=== PATIENT | female | born 1985 | race Two or more races ===

== ENCOUNTER 2025-03-31 22:41 | Day surgery (SDC) | payer MEDICAID, SELFPAY ==
[2025-03-31 23:09] VITALS: BP 127/84; PULSE 88; RESP 18; TEMP 36.8; O2SAT 98
--- NOTE | 2025-03-31 23:20 | XR_ITS ---
Examination: CT abdomen with intravenous contrast CT pelvis with intravenous contrast 2-D coronal reconstructions 2-D sagittal reconstructions Date and time of exam:April 01, 2025 0103 hours INDICATIONS: Onset right lower abdominal pain today. CTDI: vol (mGy) 7.50. DLP: (mGycm) 415. Technique: Multiple axial sections of the abdomen and pelvis have been obtained. 64 slice high-resolution scanner used. 3 mm axial sections have been obtained, post intravenous injection 60 cc Isovue 370. 2-D sagittal, coronal reconstructions obtained. Low dose protocols were performed. One or more of the following dose reduction techniques were used; automated exposure control, adjustment of the mA and/or KV according to patient size, use of iterative reconstruction technique. Findings: No focal liver or splenic lesions No gallstones No pancreatic mass No renal or ureteral calculi, no hydronephrosis Aorta normal size The appendix, axial images 161 through 146, sagittal images 105 through 94, retrocecal is fluid-filled and thickened measuring up to 7 mm There is possible very minimal periappendiceal inflammatory change. There is no pericecal inflammatory change There is no abscess Urinary bladder is intact IMPRESSION: The appendix is thickened measuring up to 7 mm, fluid-filled There is possible very minimal periappendiceal inflammatory change, there is no pericecal inflammatory change, the appearance should be clinically correlated
[2025-03-31 23:33] LABS: Collection Type, Urine Clean Catch
--- NOTE | 2025-03-31 23:46 | PD.EDABDPN ---
ED Abdominal Pain RME/HPI General Chief Complaint: Abdominal Pain Stated complaint: ABD PAIN Time seen by provider: 03/31/25 23:20 Arrival date/time: 03/31/25 22:41 39F with HLD and pre-DM presents to ED with 2 days of R-sided ab/flank pain and possible dysuria. There is also diarrhea and N/V. Limitations: no limitations Related Data Previous Rx's ?Medication ?Instructions ?Recorded docusate sodium 100 mg capsule 100 mg PO BID #20 caps 04/01/25 (Colace) hydrocodone 5 mg-acetaminophen 325 1 tab PO Q6H PRN pain (scale score 04/01/25 mg tablet 7-10) #10 tabs ibuprofen 600 mg tablet 600 mg PO Q8H PRN pain (scale 04/01/25 score 4-6) #15 tabs Allergies Allergy/AdvReac Type Severity Reaction Status Date / Time No Known Allergies Allergy Verified 03/31/25 22:42 Review of Systems Review of Systems Systems Reviewed: All systems reviewed, normal except as documented Constitutional Constitutional: Reports system reviewed and no additional complaints, except as documented, Denies fever(s) and Denies headache(s) ENT Ears, Nose, Mouth, and Throat: Denies disequilibrium and Denies headache(s) Cardiovascular Cardiovascular: Reports system reviewed and no additional complaints, except as documented, Denies chest pain and Denies dyspnea Respiratory Respiratory: Reports system reviewed and no additional complaints, except as documented, Denies cough and Denies dyspnea Gastrointestinal Gastrointestinal: Reports system reviewed and no additional complaints, except as documented, Reports as per HPI, Reports abdominal pain, Reports diarrhea, Reports nausea and Reports vomiting Genitourinary Genitourinary: Reports as per HPI and Reports dysuria Neurologic Neurologic: Reports system reviewed and no additional complaints, except as documented, Denies confusion, Denies disequilibrium and Denies headache(s) Psychiatric Psychiatric: Denies confusion Past Medical History Social History SMOKING STATUS: Never smoker ED Exam General Limitations: Present no limitations General appearance: Present alert and in no apparent distress Head Head exam: Present atraumatic Eye Eye exam: Present normal appearance, PERRL and EOMI ENT ENT exam: Present normal exam, normal oropharynx and mucous membranes moist Neck Neck exam: Present normal inspection, full ROM and trachea midline Chest Chest inspection: Present normal inspection and symmetric chest wall rise Respiratory Respiratory exam: Present normal lung sounds bilaterally Cardiovascular Cardiovascular exam: Present regular rate, normal rhythm and normal heart sounds Abdominal Exam Abdominal exam: Present soft and normal bowel sounds Extremities Exam Extremities exam: Present normal inspection and full ROM Back Exam Back exam: Present normal inspection and full ROM Neurological Exam Neurological exam: Present alert, oriented X3 and CN II-XII intact Psychiatric Psychiatric exam: Present normal affect and normal mood Skin Skin exam: Present warm, dry, intact and normal color Course Quality Measures none Orders Category Date Time Status Patient Condition Routine Admission 04/01/25 07:[address] in Surgical Day Care Routine Admission 04/01/25 07:09 Active COVID-19 Screening Questionnaire NOW Care 04/01/25 03:28 Completed COVID-19 Screening Questionnaire NOW Care 04/01/25 05:[address] Screening NOW Care 03/31/25 23:20 Completed Consent [Obtain Written Consent For:] .NOW Care 04/01/25 07:09 Completed DC Home When Criteria Met . Care 04/01/25 11:09 Completed Decision to Admit X1 Care 04/01/25 05:15 Completed Insert IV NOW Care 03/31/25 23:20 Completed Intake and Output QSHIFT Care 04/01/25 07:15 Ordered NPO NOW Care 04/01/25 03:05 Completed NPO NOW Care 04/01/25 07:09 Completed Notify provider NEEDED Care 04/01/25 07:09 Completed Consult to General Surgery Stat Cons 04/01/25 03:05 Ordered Diet NPO (NOW) Diet 04/01/25 03:05 Completed Diet NPO (NOW) Diet 04/01/25 07:09 Active Discharge Routine Discharge 04/01/25 12:[address] abdomen pelvis w con Stat Exams 03/31/25 23:20 Completed US gall bladder Stat Exams 04/01/25 00:00 Completed CBC Stat Lab 03/31/25 23:27 Completed CMP [Comprehensive Metabolic Panel] Stat Lab 03/31/25 23:27 Completed Drug Screen,Urine Stat Lab 03/31/25 23:26 Completed HCG Qualitative,Urine Stat Lab 03/31/25 23:26 Completed Lipase Stat Lab 03/31/25 23:27 Completed Urinalysis, C/S if Indicated Stat Lab 03/31/25 23:26 Completed Acetaminophen Ivpb [Ofirmev Inj] Med 04/01/25 11:10 Discontinued 1,000 mg in 100 ml IV Q6HR Acetaminophen Tab [Tylenol Tab] Med 04/01/25 07:09 Discontinued 650 mg PO Q6H PRN Bupivacaine Mpf 0.5% [Sensorcaine-Mpf Inj 0.5%] Med 04/01/25 09:59 Discontinued 30 ml .ROUTE .STK-MED ONE Cefoxitin [Mefoxin Inj] Med 04/01/25 11:18 Discontinued 1 gm .ROUTE .STK-MED ONE Cefoxitin [Mefoxin] 2 gm Med 04/01/25 07:15 Discontinued SODIUM CHLORIDE 0.9% (Popper) [Ns 0.9% (P)] 50 ml IV Q6HR Dexamethasone Inj [Decadron Inj] Med 04/01/25 11:04 Discontinued 10 mg .ROUTE .STK-MED ONE HYDROmorphone INJ [Dilaudid Inj] Med 04/01/25 11:09 Discontinued 0.4 mg IVP Q5M PRN KCL 20 mEq/L in D5-1/2NS Med 04/01/25 07:15 Discontinued 20 meq in 1,000 ml IV 100 mls/hr Ketorolac Inj [Toradol Inj] Med 04/01/25 11:04 Discontinued 30 mg .ROUTE .STK-MED ONE Meperidine Inj [Demerol Inj] Med 04/01/25 11:09 Discontinued 12.5 mg IVP Q5M PRN Midazolam Inj [Versed Inj] Med 04/01/25 11:04 Discontinued 2 mg .ROUTE .STK-MED ONE Morphine Inj Med 04/01/25 07:09 Discontinued 3 mg IVP Q1H PRN Morphine Inj Med 04/01/25 11:09 Discontinued 3 mg IVP Q5M PRN Morphine Inj Med 03/31/25 23:20 Discontinued 5 mg IVP X1 ONE Ondansetron Inj [Zofran Inj] Med 04/01/25 11:04 Discontinued 4 mg .ROUTE .STK-MED ONE Ondansetron Inj [Zofran Inj] Med 03/31/25 23:20 Discontinued 4 mg IV X1 ONE Ondansetron Inj [Zofran Inj] Med 04/01/25 07:09 Discontinued 4 mg IVP Q6H PRN Ondansetron Inj [Zofran Inj] Med 04/01/25 11:09 Discontinued 4 mg IVP X1 ONE Piper/Tazo 3.375 gm Premix [Zosyn] Med 04/01/25 03:04 Discontinued 3.375 gm in 50 ml IV X1 Propofol Inj [Diprivan Inj] Med 04/01/25 11:03 Discontinued 200 mg IV .STK-MED ONE Ringers Lactated 1000 ml [Lactated Ringers] 1,000 ml Med 04/01/25 04:04 Discontinued IV 500 mls/hr Sugammadex Inj [Bridion Inj] Med 04/01/25 11:04 Discontinued 200 mg .ROUTE .STK-MED ONE fentaNYL INJ [Sublimaze Inj] Med 04/01/25 11:03 Discontinued 100 mcg .ROUTE .STK-MED ONE fentaNYL INJ [Sublimaze Inj] Med 04/01/25 11:09 Discontinued 25 mcg IVP Q5M PRN Code Status Routine Oth 04/01/25 07:09 Completed Oxygen Delivery PRN RT 04/01/25 11:09 Completed Vital Signs Vital signs: Vital Signs Temperature 98.2 F 03/31/25 23:09 Pulse Rate 88 03/31/25 23:09 Respiratory Rate 18 03/31/25 23:09 Blood Pressure 127/84 03/31/25 23:09 Pulse Oximetry (%) 98 03/31/25 23:09 Oxygen Delivery Method Room Air 03/31/25 23:09 O2 at 98% on RA and WNLs Abdominal Pain MDM MDM Narrative MDM Narrative:: 39F with HLD and pre-DM presents to ED with 2 days of R-sided ab/flank pain and possible dysuria. There is also diarrhea and N/V. Physical exam reveals RLQ tenderness. Patient is afebrile, alert, but appears to be in pain. CT reveals appy. Mild leukocytosis. CMP and lipase unremarkable. UA clean. Spoke to Dr. Atwood, gen surg, who will evaluate patient in AM. Patient eventually admitted. Patient data External records reviewed:: None Clinical information provided by:: patient Social determinants that could affect healthcare access:: none Patient has the following chronic illnesses:: pre DM and HLD How is presenting disease/condition affected by chronic disease/condition?: exacerbated by Evaluation data The following diagnostics were reviewed and interpreted by me:: lab results and radiology exam(s) Lab and/or radiology exams considered but not ordered:: ordered Interpretation Summary: above Medications / Prescriptions Medications or Prescriptions considered but not ordered:: ordered Medication administrations:: Medication Administration History Discontinued Medications Acetaminophen (Acetaminophen 325 Mg Tablet) 650 mg PO Q6H PRN PRN Reason: Fever >101.5 Stop: 05/01/25 07:08 Bupivacaine HCl (Bupivacaine Mpf 0.5% 30 Ml Vial) Confirm Administered Dose 30 ml .ROUTE .STK-MED ONE Stop: 04/01/25 10:00 Cefoxitin Sodium (Cefoxitin Sod Inj 1 Gm Vial) Confirm Administered Dose 1 gm .ROUTE .STK-MED ONE Stop: 04/01/25 11:19 Dexamethasone Sodium Phosphate (Dexamethasone Sod Phos Inj 10 Mg/Ml Vial) Confirm Administered Dose 10 mg .ROUTE .STK-MED ONE Stop: 04/01/25 11:05 Fentanyl Citrate (Fentanyl Cit Inj 50 Mcg/Ml Amp 2ml) Confirm Administered Dose 100 mcg .ROUTE .STK-MED ONE Stop: 04/01/25 11:04 Fentanyl Citrate (Fentanyl Cit Inj 50 Mcg/Ml Amp 2ml) 25 mcg IVP Q5M PRN PRN Reason: PAIN SCALE 1-3 (mild Stop: 04/01/25 13:09 Hydromorphone HCl (Hydromorphone Inj 2 Mg/Ml Vial) 0.4 mg IVP Q5M PRN PRN Reason: PAIN SCALE 7-10 (Severe Stop: 04/01/25 13:09 Piperacillin/Tazobactam/Dextrose (Zosyn) 3.375 gm in 50 mls @ 100 mls/hr IV X1 ONE Stop: 04/01/25 03:33 Last Infusion: 04/01/25 04:20 Dose: Infused Documented By: Admin: 04/01/25 03:34 Dose: 100 mls/hr Documented By: CVL Lactated Ringer's (Lactated Ringers) 1,000 mls @ 500 mls/hr IV .Q2H ONE Stop: 04/01/25 06:03 Last Infusion: 04/01/25 07:53 Dose: Infused Documented By: Admin: 04/01/25 04:32 Dose: 500 mls/hr Documented By: CVL Potassium Chloride/Dextrose/Sod Cl (Kcl 20 Meq/L In D5-1/2ns) 20 meq in 1,000 mls @ 100 mls/hr IV .Q10H PRASANTH Stop: 05/01/25 07:14 Last Admin: 04/01/25 09:03 Dose: 100 mls/hr Documented By: ER Cefoxitin Sodium 2 gm/ Sodium (Chloride) 50 mls @ 100 mls/hr IV Q6HR [facility] Stop: 04/08/25 07:14 Last Infusion: 04/01/25 08:41 Dose: Infused Documented By: Admin: 04/01/25 08:11 Dose: 100 mls/hr Documented By: ER Acetaminophen (Ofirmev Inj) 1,000 mg in 100 mls @ 250 mls/hr IV Q6HR [facility] Stop: 04/02/25 06:23 Ketorolac Tromethamine (Ketorolac Inj 30 Mg/Ml Vial) Confirm Administered Dose 30 mg .ROUTE .STK-MED ONE Stop: 04/01/25 11:05 Meperidine HCl (Meperidine Inj 50 Mg/Ml Vial) 12.5 mg IVP Q5M PRN PRN Reason: PAIN SCALE 1-3 (mild Stop: 04/01/25 13:09 Midazolam HCl (Midazolam Inj 1 Mg/Ml Vial 2 Ml) Confirm Administered Dose 2 mg .ROUTE .STK-MED ONE Stop: 04/01/25 11:05 Morphine Sulfate (Morphine Sulf Inj 10 Mg/Ml Vial) 5 mg IVP X1 ONE Stop: 03/31/25 23:21 Last Admin: 04/01/25 03:15 Dose: 5 mg Documented By: CVL Morphine Sulfate (Morphine Sulf Inj 10 Mg/Ml Vial) 3 mg IVP Q1H PRN PRN Reason: PAIN Last Admin: 04/01/25 10:19 Dose: 3 mg Documented By: ER Morphine Sulfate (Morphine Sulf Inj 10 Mg/Ml Vial) 3 mg IVP Q5M PRN PRN Reason: PAIN SCALE 4-6 (Moderate Stop: 04/01/25 13:09 Ondansetron HCl (Ondansetron Inj 2 Mg/Ml Inj 2 Ml) 4 mg IV X1 ONE; Protocol Stop: 03/31/25 23:21 Last Admin: 04/01/25 03:14 Dose: 4 mg Documented By: CVL Ondansetron HCl (Ondansetron Inj 2 Mg/Ml Inj 2 Ml) 4 mg IVP Q6H PRN PRN Reason: NAUSEA OR VOMITING Stop: 05/01/25 07:08 Last Admin: 04/01/25 10:19 Dose: 4 mg Documented By: ER Ondansetron HCl (Ondansetron Inj 2 Mg/Ml Inj 2 Ml) Confirm Administered Dose 4 mg .ROUTE .STK-MED ONE Stop: 04/01/25 11:05 Ondansetron HCl (Ondansetron Inj 2 Mg/Ml Inj 2 Ml) 4 mg IVP X1 ONE Stop: 04/01/25 11:10 Propofol (Propofol Inj 10 Mg/Ml Vial 20 Ml) Confirm Administered Dose 200 mg IV .STK-MED ONE Stop: 04/01/25 11:04 Sugammadex Sodium (Sugammadex Inj 100 Mg/Ml 2ml Vial) Confirm Administered Dose 200 mg .ROUTE .STK-MED ONE Stop: 04/01/25 11:05 above Consultations Consultation(s) initiated? (list below): Yes Diagnosis Differential diagnosis abdominal pain: abdominal pain, acute appendicitis, calculus of kidney, constipation, diverticulitis, endometriosis, gastroenteritis, pancreatitis and small bowel obstruction Most likely diagnosis given after review of the tests above:: appy Admission Indicated Admission indicated?: indicated Admission Request Was there a request for admission?: Yes Admission Attestation Admission request attestation: Discussed case with [Dr. Atwood] from General Surgery service regarding admission. Discussed patients ED course, exam findings, labs, and radiology results. The Surgeon [agrees] to accept the patient for admission. Disposition Plan Disposition Plan: Admit Discharge Plan Plan Patient Disposition: Admit Acute Care w/in Hospital Problem List Clinical Impression: Acute appendicitis Patient/Caregiver Discharge Instructions Discharge Activity: activity as tolerated
[2025-03-31 23:48] LABS: Basophils # (Auto) 0.0 Thou/mm3 (0.0-0.2); Basophils % (Auto) 0 % (0-2.5); Eosinophils # (Auto) 0.1 Thou/mm3 (0.0-0.5); Eosinophils % (Auto) 1 % (0-10); Hematocrit 41.3 % (36.0-46.0); Hemoglobin 13.9 g/dL (12.0-16.0); Immature Granulocytes Auto 0.03 Thou/mm3 (0.00-0.00); Lymphocytes # (Auto) 1.3 Thou/mm3 (1.0-4.8); Lymphocytes % (Auto) 10 % (10-50); Mean Corpuscular HGB Conc 33.7 g/dl (31.0-37.0); Mean Corpuscular Hemoglobin 25.6 pg (25.0-35.0); Mean Corpuscular Volume 76 fL (80-100); Monocytes # (Auto) 0.8 Thou/mm3 (0.0-0.8); Monocytes % (Auto) 6 % (0-12); Neutrophils # (Auto) 10.5 Thou/mm3 (1.8-7.7); Neutrophils % (Auto) 83 % (37-80); Nucleated Red Blood Cell # 0.00 Thou/mm3 (0.00-0.00); Nucleated Red Blood Cell % 0 /100 WBC (0); Platelet Count 216 Thou/mm3 (140-440); RDW Standard Deviation 35.9 fL (36.4-46.3); Red Blood Count 5.43 Miln/mm3 (4.00-5.20); White Blood Count 12.7 Thou/mm3 (3.6-11.0)
[2025-03-31 23:54] LABS: Alanine Aminotransferase 44 U/L (10-49); Albumin, Serum 4.4 gm/dL (3.5-5.0); Albumin/Globulin Ratio 1.5 (1.2-2.2); Alkaline Phosphatase 62 U/L (46-116); Anion Gap 6 (7-16); Aspartate Amino Transferase 30 U/L (0-34); BUN/Creatinine Ratio 18 Ratio (12-20); Bilirubin,Total 0.9 mg/dL (0.3-1.2); Blood Urea Nitrogen 11 mg/dL (9-23); Calcium 8.8 mg/dL (8.3-10.6); Calcium (Corrected) 8.8 mg/dL (8.5-10.1); Carbon Dioxide 23.6 mMol/L (20.0-31.0); Chloride 108 mMol/L (98-107); Creatinine (Component) 0.6 mg/dL (0.6-1.3); Globulin 3.0 gm/dL (2.3-3.5); Glucose 106 mg/dL (74-106); Lipase 27 U/L (12-53); Osmolality,Calculated 275 (275-295); Potassium 3.4 mMol/L (3.4-5.1); Sodium 138 mMol/L (136-145); Total Protein 7.4 gm/dL (5.7-8.2); eGFR > 60 See Note
[2025-04-01] VITALS (12 sets, daily range): BP systolic 96–123; BP diastolic 62–88; PULSE 63–88; RESP 12–20; TEMP 36.3–37.3; O2SAT 96–100; BMI 25.4
--- NOTE | 2025-04-01 | XR_ITS ---
Examination: Abdomen sonogram, Limited Date and time of exam: April 01, 2025, 0007 hours. INDICATIONS: Right upper abdominal pain today. Technique: Real-time kennedy scale transabdominal sonographic images of the upper abdomen obtained. Findings: Contracted gallbladder. Common bile duct 0.1 cm Pancreatic head 4.2 cm Liver 19.3 cm no focal liver lesions, lobular contour of the liver Normal hepatopedal portal venous and Patent IVC IMPRESSION: Negative for cholelithiasis Pancreatic head measured prominent by the technologist Moderate hepatomegaly suspected primary hepatocellular disease
[2025-04-01 00:04] LABS: HCG Qualitative,Urine Negative
[2025-04-01 00:08] LABS: Bacteria,Urine Rare; Bilirubin,Urine Negative (Negative); Blood,Urine Negative (Negative); Clarity,Urine Clear (Clear/Hazy); Color,Urine Lt-Yellow (Lt Yel-Yel); Culture Indicated,Urine Not Indicated; Glucose, Urine Negative (Negative); Ketones,Urine Negative (Negative); Leukocyte Esterase,Urine Negative (Negative); Nitrite,Urine Negative (Negative); PH,Urine 7.0 (5.0-7.0); Protein,Urine Negative (Neg - Trace); RBC,Urine 1 /hpf (0-3); Specific Gravity,Urine 1.013 (1.001-1.035); Squamous Epithelial Cell,Urine 3 /hpf (0-5); Urobilinogen,Urine Negative mg/dL (0.0-1.0); WBC,Urine < 1 /hpf (0-5)
[2025-04-01 00:19] LABS: Amphetamine/Methamp Scrn,U Negative (Negative); Barbiturate Screen,Urine Negative (Negative); Benzodiazepines Screen,Urine Negative (Negative); Benzoylecgonine Screen, Ur Negative (Negative); Fentanyl Screen,Urine Negative (Negative); Opiate Screen,Urine Negative (Negative); THC Screen,Urine Negative (Negative)
--- NOTE | 2025-04-01 01:18 | PRELIM_ITS ---
Gallbladder ultrasound. April 01, 2025 0007 hours Clinical history: Right upper quadrant pain x1 day with nausea. Technique: Grayscale and color flow images of the gallbladder are provided. Hepatic and portal veins were also imaged with color flow images. Comparison: None. Findings: The liver is enlarged measuring 19 cm in length and demonstrates increased echogenicity with lobular contour. No evidence of mass or cyst. No intrahepatic biliary ductal dilatation. The main portal vein is patent and demonstrates hepatopetal flow. The hepatic veins are patent. No gallbladder calculus, wall thickening or pericholecystic fluid is demonstrated. The common bile duct is normal in caliber at 1 mm. The pancreas is unremarkable to the extent visualized. The inferior vena cava is unremarkable to the extent visualized. Impression: 1. No sonographic evidence of cholelithiasis, acute cholecystitis or biliary obstruction. 2. Hepatic steatosis. Report Electronically Signed By: Chasidy Abdalla 04/01/2025 1:17:42 AM [EST]
--- NOTE | 2025-04-01 02:53 | PRELIM_ITS ---
CT scan of the abdomen and pelvis with intravenous contrast (axial sections with sagittal and coronal reformats). April 01, 2025 at 0103 hours Clinical History: RLQ pain. Comparison: Gallbladder ultrasound from April 01, 2025. Findings: There is fatty infiltration of liver. The gallbladder, spleen, pancreas, adrenals and kidneys are unremarkable. There is mild circumferential urinary bladder wall thickening. Reproductive organs are unremarkable. There is ingested material within the stomach. There is no bowel obstruction. There is dilated thick-walled appendix measuring 9.5 mm in diameter in keeping with acute appendicitis. There is no periappendiceal abscess. There is no free intraperitoneal air or fluid. There is no abdominal or pelvic lymphadenopathy. There is subsegmental atelectasis within the lung bases. There is no acute oss eous abnormality. There is degenerative change in the lower lumbar spine. Impression: Acute appendicitis without evidence of perforation or abscess. Recommend surgical consultation. Possible cystitis. Discussion Details: Results verbally communicated to : Dr. Regan at 02:15 AM 04/01/2025 Report Electronically Signed By: Philipp Rome 04/01/2025 2:22:01 AM [EST]
[2025-04-01] MEDS: ONDANSETRON INJ 2 MG/ML INJ 2 ML 4 MG IV (03:14)
[2025-04-01] MEDS: MORPHINE SULF INJ 10 MG/ML VIAL 5 MG IVP (03:15)
--- NOTE | 2025-04-01 03:18 | PC.NURSE ---
WE HAD DOWN TIME FROM [id number].
[2025-04-01] MEDS: PIPER/TAZO 3.375 GM PREMIX 3.375 GM/50 ML BAG IV (03:34)
[2025-04-01] MEDS: RINGERS LACTATED 1000 ML 1,000 ML 500 ML IV (04:32)
--- NOTE | 2025-04-01 08:00 | PC.NURSE ---
Patient A&O X4 Kiswahili speaking only. Patient denies pain or discomfort at this time. Surgical consent signed post Dr. Atwood at bedside updating patient on POC.
[2025-04-01] MEDS: CEFOXITIN 2 GM in SODIUM CHLORIDE 0.9% (Popper) 50 ML IV (08:11)
[2025-04-01] MEDS: KCL 20 mEq/L in D5-1/2NS 20 MEQ/1,000 ML BAG 100 MEQ IV (09:03)
--- NOTE | 2025-04-01 09:58 | PD.SURHP ---
HPI Date of Admission 04/01/2025 Chief Complaint Chief Complaint: Right lower quadrant abdominal pain with nausea and vomiting HPI 39 yo female without significant past medical history presented to emergency department with acute onset of abdominal pain. Her pain started yesterday around periumbilical area. Her pain was intermittent initially. Her pain then become persistent, progressively worse and localized over right lower quadrant. She has had nausea and vomiting. She denies fever, chills, diarrhea, constipation or dysuria. She denies having similar symptoms in the past. Review of Systems Constitutional Constitutional: Denies chills, Denies fever(s) and Denies headache(s) ENT Ears, Nose, Mouth, and Throat: Denies headache(s) Cardiovascular Cardiovascular: Denies chest pain Respiratory Respiratory: Denies cough Gastrointestinal Gastrointestinal: Reports abdominal pain, Reports nausea and Reports vomiting Genitourinary Genitourinary: Denies difficulty voiding Neurologic Neurologic: Denies headache(s) Hematologic/Lymphatic Hematologic/Lymphatic: Denies as per HPI and Denies easy bleeding Past Medical History Surgical History OTHER SURGICAL HX: No surgeries in the past Social History SMOKING STATUS: Never smoker SUBSTANCE USE: does not use ALCOHOL: Never Meds Home Medications and Allergies Allergies Allergy/AdvReac Type Severity Reaction Status Date / Time No Known Allergies Allergy Verified 03/31/25 22:42 Exam Vital Signs Temp Pulse Resp BP Pulse Ox O2 Del Method 98.0 F 63 18 105/71 99 Room Air 04/01/25 08:00 04/01/25 08:00 04/01/25 08:00 04/01/25 08:00 04/01/25 08:00 04/01/25 08:00 Constitutional Constitutional: no acute distress Routine Respiratory Exam Respiratory: Present CTA bilaterally Routine Cardiovascular Exam Cardiovascular: Present RRR Routine Abdominal Exam Abdominal: Present soft, normoactive bowel sounds and tenderness (RLQ tenderness to palpation with guarding, no rebound tenderness or peritonitis at this time); Absent distended Results Results: Laboratory Laboratory results: results reviewed Results: Imaging CT scan - abdomen: report reviewed and image reviewed CT scan - pelvis: report reviewed and image reviewed Assessment & Plan Problem List (1) Acute appendicitis: Qualifiers: Acute appendicitis type: unspecified acute appendicitis type Qualified Code(s): K35.80 - Unspecified acute appendicitis Status: Acute Plan I will schedule her for laparoscopic possible open appendectomy. Risks, benefits and alternatives discussed with the pt via petroleum supply specialist. All her questions answered, she voiced understanding and agreed to proceed with the operation. Quality Measures Quality Measures none
[2025-04-01] MEDS: ONDANSETRON INJ 2 MG/ML INJ 2 ML 4 MG IVP (10:19)
[2025-04-01] MEDS: MORPHINE SULF INJ 10 MG/ML VIAL 3 MG IVP (10:19)
--- NOTE | 2025-04-01 11:57 | ESOP_ITS ---
Date of Procedure 04/01/25 Pre Op Diagnosis Acute appendicitis Post Op Diagnosis Acute appendicitis Procedure Laparoscopic appendectomy Findings Inflamed and hyperemic appendix without perforation Procedure Description Patient was brought into the operating room in supine position. After administration of general endotracheal anesthesia, abdomen was prepped and draped in standard surgical manner. A Veress needle was inserted through the umbilicus and pneumoperitoneum was obtained up to 15 mmHg. The Veress needle was removed and a 5 mm umbilical incision was made. A 5 mm trocar was placed and laparoscopic camera was inserted. Under direct visualization a laparoscopic camera a 5 mm trocar placed in suprapubic region and a 10 mm trocar placed in left lower quadrant. The abdomen was inspected, the cecum was identified and followed until the appendix was identified. The appendix was noted to be inflamed and hyperemic without perforation. A window was created between the appendix and mesoappendix and the appendix was divided near the appendix and cecal junction with blue Endo JB stapling device. The mesoappendix was divided with kennedy Endo JB stapling device. The appendix was placed inside an Endo Catch and removed from the abdomen utilizing left lower quadrant trocar site. Abdomen and pelvis copiously and thoroughly washed and irrigated, all the fluids were suctioned and the suctioned fluid returned clear. Hemostasis was adequate and satisfactory, staple lines were intact without bleeding or any leakage. Lef t lower quadrant trocar sites fascial defect was closed with 0 Vicryl using Endo closure device. Instruments and trocars removed, pneumoperitoneum was evacuated and the incisions closed with 4-0 Monocryl subcuticular fashion. Instruments, needles and sponge counts were reported to be correct ??2. Patient tolerated the procedure well, was extubated, breathing spontaneously and without difficulty and was transferred to postanesthesia care in stable condition. Anesthesia GETA and local Pathology / specimen Other (Appendix) Estimated Blood Loss 10 Condition Stable Disposition PACU Surgeon Mary Lou Atwood MD Surgical Staff Operation Date: 04/01/25 11:30 Case Staff Anesthesiologist: Ko Cox
--- NOTE | 2025-04-01 11:59 | SUR.PHASEI ---
Pt. arrived to recovery via gurney, eyes closed, resting, VSS, lung sounds clear with rhonchi noted on inspiration, equal expansion omero., pt. receiving 4 liters 02 via oxymask. Lap sites x4 to lower abdomen, dermabond intact, lap site to left side appears red and mildly inflammed, report received from Dave THOMPSON and Dr. Cox.
--- NOTE | 2025-04-01 12:29 | SUR.PHASEI ---
pt lying in gurney with eyes closed, breathing unlabored, dressing to abdomen clean, dry, and intact, VS stable, report from Leandra THOMPSON
--- NOTE | 2025-04-01 13:35 | SUR.PHASEII ---
pt awake, alert, able to follow commands, breathing unlabored, dressing to abdomen clean, dry, and intact, pt able to dress self and ambulate to wheelchair with steady gait, pt able to tolerate oral fluids without difficulty swallowing or n/v, discharge instructions given with friend present using telephone medical interpreter Eli ID#[id number], pt discharged via wheelchair with all belongings and copies of discharge paperwork.
== END 2025-04-01 13:35 | disposition home or self-care (01) ==
LOC: SERX 04-01 07:20 → S2EX 04-01 07:32
PROVIDERS: Physician Assistant; Emergency Provider Emergency Medicine; Referring Provider Surgery; Visit Provider Surgery
PROC: 0DTJ4ZZ Resection of Appendix, Percutaneous Endoscopic Approach (ICD-10-PCS; CPT 44970; principal; 2025-04-01 11:30)
DX: K35.80 Unspecified acute appendicitis (principal); E78.5 Hyperlipidemia, unspecified; R73.03 Prediabetes
CPT/HCPCS: 44970; 36415; 74177; 76705; 80053; 80307; 81001; 81025; 83690; 85025; 96361; 96365; 96367; 96375; 96376; 99285; A4217; A4649; J0694; J1100; J1885; J2250; J2270; J2405; J2543; J2704; J3010; J3480; J3490; J7050; J7120; Q9967

== ENCOUNTER 2025-08-16 15:08 | Emergency (ER) | payer MEDICAID, SELFPAY ==
[2025-08-16 16:20] VITALS: BP 150/96; PULSE 98; RESP 18; TEMP 37.1; O2SAT 97; BMI 25.7
--- NOTE | 2025-08-16 16:22 | XR_ITS ---
Examination: Complete OB ultrasound, less than 14 weeks, transabdominal Date and time of exam: August 16, 2002 5 1818 hours INDICATIONS: Vaginal bleeding and pelvic cramping today Technique: Obstetrical ultrasound images less than 14 weeks performed via transabdominal imaging Findings: Uterus 8.7 cm no uterine mass or intrauterine gestation Endometrial stripe 0.7 cm Right ovary 1.6 cm arterial flow Left ovary 3.0 cm arterial flow Mild fluid in the cul-de-sac IMPRESSION: Negative study.
--- NOTE | 2025-08-16 16:23 | PD.EDRME ---
Rapid Medical Screening Exam [facility] Arrival date/time: 08/16/25 15:08 Chief Complaint: Vaginal Bleeding Vital signs: Vital Signs Temperature 98.8 F 08/16/25 16:20 Pulse Rate 98 08/16/25 16:20 Respiratory Rate 18 08/16/25 16:20 Blood Pressure 150/96 H 08/16/25 16:20 Pulse Oximetry (%) 97 08/16/25 16:20 Oxygen Delivery Method Room Air 08/16/25 16:20 [facility] Narrative: 40 year old female, who is , here for vaginal bleeding and lower abdominal pain. Last menstruation 07/11/25; making her 5 weeks 1 day . Exam: Normal exam. Clinical Impression: Vaginal bleeding in [place] 5 1/7 week .
[2025-08-16 16:51] VITALS: BP 126/83; PULSE 78; RESP 17; TEMP 36.8; O2SAT 99
[2025-08-16 16:54] LABS: Collection Type, Urine Clean Catch
[2025-08-16 17:15] LABS: Basophils # (Auto) 0.1 Thou/mm3 (0.0-0.2); Basophils % (Auto) 1 % (0-2.5); Eosinophils # (Auto) 0.1 Thou/mm3 (0.0-0.5); Eosinophils % (Auto) 1 % (0-10); Hematocrit 40.8 % (36.0-46.0); Hemoglobin 13.1 g/dL (12.0-16.0); Immature Granulocytes Auto 0.02 Thou/mm3 (0.00-0.00); Lymphocytes # (Auto) 2.6 Thou/mm3 (1.0-4.8); Lymphocytes % (Auto) 31 % (10-50); Mean Corpuscular HGB Conc 32.1 g/dl (31.0-37.0); Mean Corpuscular Hemoglobin 25.6 pg (25.0-35.0); Mean Corpuscular Volume 80 fL (80-100); Monocytes # (Auto) 0.8 Thou/mm3 (0.0-0.8); Monocytes % (Auto) 9 % (0-12); Neutrophils # (Auto) 4.9 Thou/mm3 (1.8-7.7); Neutrophils % (Auto) 59 % (37-80); Nucleated Red Blood Cell # 0.00 Thou/mm3 (0.00-0.00); Nucleated Red Blood Cell % 0 /100 WBC (0); Platelet Count 280 Thou/mm3 (140-440); RDW Standard Deviation 37.5 fL (36.4-46.3); Red Blood Count 5.12 Miln/mm3 (4.00-5.20); White Blood Count 8.3 Thou/mm3 (3.6-11.0)
[2025-08-16 17:33] LABS: Alanine Aminotransferase 25 U/L (10-49); Albumin, Serum 4.5 gm/dL (3.5-5.0); Albumin/Globulin Ratio 1.7 (1.2-2.2); Alkaline Phosphatase 63 U/L (46-116); Anion Gap 9 (7-16); Aspartate Amino Transferase 26 U/L (0-34); BUN/Creatinine Ratio 13 Ratio (12-20); Beta HCG,Quantitative 3 mIU/mL (<5.0); Bilirubin,Direct < 0.1 mg/dL (0.0-0.3); Bilirubin,Total 0.4 mg/dL (0.3-1.2); Blood Urea Nitrogen 8 mg/dL (9-23); Calcium 9.6 mg/dL (8.3-10.6); Calcium (Corrected) 9.6 mg/dL (8.5-10.1); Carbon Dioxide 23.7 mMol/L (20.0-31.0); Chloride 107 mMol/L (98-107); Creatinine (Component) 0.6 mg/dL (0.6-1.3); Estimated Creatinine Clearance 114.8 mL/min (>60); Globulin 2.6 gm/dL (2.3-3.5); Glucose 92 mg/dL (74-106); Magnesium 1.9 mg/dL (1.6-2.6); Osmolality,Calculated 277 (275-295); Potassium 3.9 mMol/L (3.4-5.1); Sodium 140 mMol/L (136-145); Thyroid Stimulating Hormone 2.19 uIU/mL (0.55-4.78); Total Protein 7.1 gm/dL (5.7-8.2); eGFR > 60 See Note
[2025-08-16 17:54] LABS: Bacteria,Urine Rare; Bilirubin,Urine Negative (Negative); Blood,Urine 3+ (Negative); Clarity,Urine Clear (Clear/Hazy); Color,Urine Colorless (Lt Yel-Yel); Culture Indicated,Urine Not Indicated; Glucose, Urine Negative (Negative); Ketones,Urine Negative (Negative); Leukocyte Esterase,Urine Negative (Negative); Nitrite,Urine Negative (Negative); PH,Urine 6.0 (5.0-7.0); Protein,Urine Negative (Neg - Trace); RBC,Urine 54 /hpf (0-3); Specific Gravity,Urine 1.008 (1.001-1.035); Squamous Epithelial Cell,Urine 1 /hpf (0-5); Urobilinogen,Urine Negative mg/dL (0.0-1.0); WBC,Urine 1 /hpf (0-5)
--- NOTE | 2025-08-16 21:10 | EDNOTE_ITS ---
ED General RME/HPI General Chief complaint: Vaginal Bleeding Stated complaint: + SUNDAY, STARTED SPOTTING TODAY Time Seen by Provider: 08/16/25 19:34 Arrival date/time: 08/16/25 15:08 CC: Vaginal bleeding with lower abdominal cramping HPI onset approximately 3 PM this afternoon. Patient states she had a weakly positive urine test a week ago last Sunday. Patient is a G3, P0 denies nausea vomiting fever chills shortness of breath or difficulty breathing. RME / HPI RME / HPI narrative: 40 year old female, who is , here for vaginal bleeding and lower abdominal pain. Last menstruation 07/11/25; making her 5 weeks 1 day . Exam: Normal exam. Impression: Vaginal bleeding in GA 5 1/7 week . Related Data Previous Rx's ?Medication ?Instructions ?Recorded docusate sodium 100 mg capsule 100 mg PO BID #20 caps 04/01/25 (Colace) hydrocodone 5 mg-acetaminophen 325 1 tab PO Q6H PRN pa in (scale score 04/01/25 mg tablet 7-10) #10 tabs ibuprofen 600 mg tablet 600 mg PO Q8H PRN pain (scal e 04/01/25 score 4-6) #15 tabs Allergies Allergy/AdvReac Type Severity Reaction Status Date / Time No Known Allergies Allergy Verified 08/16/25 15:12 Review of Systems Review of Systems Narrative Review of Systems: GEN: No fever, no chills, no weight loss EYES: No discharge, no visual changes, no pain HEENT: No ear pain, no congestion, no sore throat PULM: No shortness of breath, no cough, no congestion CV: No chest pain, no dyspnea on exertion, no palpitations GI: No nausea, no vomiting, no diarrhea, no pain, no constipation : No frequency, no urgency, no dysuria MUSC/SKEL: No joint pain, no back pain SKIN: No rash PSYCH: No hallucinations, no depression HEME/LYMPH: No easy bleeding or bruising tendencies NEURO: No weakness, no headache Past Medical History Past Medical History NEUROLOGIC: Negative Seizures CARDIAC: Negative Cardiac Disorders or Congestive Heart Failure RESPIRATORY: Negative Chronic Obstructive Pulmonary Disease (COPD) or Asthma GENITOURINARY: Negative Renal Disease ENDOCRINE: Positive Diabetes Mellitus Type 2; Negative Diabetes Mellitus Type 1 HEMATOLOGIC: Negative Sickle Cell Disease OTHER HISTORY: Negative Blood Transfusions or Anesthesia Reactions Social History SMOKING STATUS: Never smoker SUBSTANCE USE: does not use ED Exam Narrative Physical exam: [General: Not in any acute distress Head normocephalic HEENT: Within acceptable limits Neck is supple nontender Chest equal chest rise nontender to palpation Respiratory: Clear to auscultation no wheezes crackles or rubs CV: Rate rhythm is regular no murmurs rubs or clicks Abdomen is soft nontender no masses positive bowel sounds all 4 quadrants Back: No CVA tenderness no spinous process tenderness from cervical spine thoracic and lumbar spine Skin: Intact no petechiae rash induration ulceration or crepitus Extremities: Moving all extremity against resistance cap refill less than 2 seconds neurosensory intact Neuro: Awake alert oriented x3 Glascow coma 15 no focal deficits] Course Quality Measures none Orders Category Date Time Status US OB <= 14 weeks fetus Stat Exams 08/16/25 16:22 Completed Beta HCG,Quantitative Stat Lab 08/16/25 16:42 Completed Bilirubin,Direct Stat Lab 08/16/25 16:42 Completed CBC Stat Lab 08/16/25 16:42 Completed CMP [Comprehensive Metabolic Panel] Stat Lab 08/16/25 16:42 Completed Magnesium Stat Lab 08/16/25 16:42 Completed Rh Testing Only Stat Lab 08/16/25 16:42 Completed TSH [Thyroid Stimulating Hormone] Stat Lab 08/16/25 16:42 Completed UA, C/S IF [Urinalysis, C/S if Indicated] Stat Lab 08/16/25 16:45 Completed Vital Signs Vital signs: Vital Signs Temperature 98.8 F 08/16/25 16:20 Pulse Rate 98 08/16/25 16:20 Respiratory Rate 18 08/16/25 16:20 Blood Pressure 150/96 H 08/16/25 16:20 Pulse Oximetry (%) 97 08/16/25 16:20 Oxygen Delivery Method Room Air 08/16/25 16:20 Discharge Plan Plan Patient Disposition: HOME (Self Care) Patient condition on transfer: Stable Prescriptions/Referrals Prescriptions/Med Rec: No Action docusate sodium [Colace] 100 mg capsule 100 mg PO BID Qty: 20 0RF ibuprofen 600 mg tablet 600 mg PO Q8H PRN (Reason: pain (scale score 4-6)) Qty: 15 0RF hydrocodone-acetaminophen 5-325 mg tablet 1 tab PO Q6H MDD 4 PRN (Reason: pain (scale score 7-10)) Qty: 10 0RF Referrals: James Claros CNM [Primary Care Provider] - In 1 week Problem List Clinical Impression: Complete miscarriage Patient/Caregiver Discharge Instructions Education Materials: ED MISCARRIAGE Completed Additional Instructions: Follow-up with your STRAIGHT EDGER Consider highway administrative engineer/GYN or fertility specialist if you desire to have children. Print Language: [place] Stand Alone Forms: Rachael Award Info., Work/School Release, Patient Portal Info Letter PA/JEFRY Supervising Physician PA/LIVING SUPERVISOR Supervising Physician: Neel BROWN Clinical Information Provided by: patient Medical Records reviewed [facility] Meds/Rx considered, not ordered None Labs/Rad/Tests considered, not ordered None Chronic Illness/Social Conditions which may negatively complicate care or outcome(s)-explain: None or not applicable EKG EKG not done Labs Labs: interpreted by me Lab(s) Interpretation(s): CBC shows no acute leukocytosis anemia thrombocytopenia CMP shows no significant electrolyte imbalances renal impairment transaminitis or T. bili elevation Quantitative hCG is 3 Urine shows 3+ blood no WBCs rare bacteria leukocyte esterase negative Imaging Imaging interpretation: interpreted by me Imaging Interpretation(s): Ultrasound shows an empty uterine vault. Diagnosis Differential Diagnosis ED Complaint MDM: SAB ectopic dysfunctional uterine bleeding
[2025-08-16 21:21] VITALS: RESP 18
== END 2025-08-16 21:22 | disposition home or self-care (01) ==
PROVIDERS: Emergency Provider Emergency Medicine; PCP Registered Nurse Obstetric, Inpatient
DX: O03.9 Complete or unspecified spontaneous abortion without complication (principal); Z3A.01 Less than 8 weeks gestation of pregnancy
CPT/HCPCS: 36415; 76801; 80053; 81001; 82248; 83735; 84443; 84702; 85025; 86901; 99283